=== PATIENT | male | born 1975 | race Hispanic/Latino ===

== ENCOUNTER 2016-03-31 09:11 | Outpatient (CLI) | payer MEDICARE, OTHER ==
[2016-03-31 09:31] LABS: #Basophils 0.1 thou/uL (0.0-0.2); #Eosinphils 0.1 thou/uL (0.0-0.7); #Lymphocytes 1.3 thou/uL (1.20-3.40); #Monocytes 0.5 thou/uL (0.11-0.59); #Neutrophils 2.6 thou/uL (1.40-6.50); %Basophils 1.7 % (0.0-1.0); %Eosinophils 2.4 % (0.0-10.0); %Lymphocytes 29.4 % (21.0-51.0); %Monocytes 10.1 % (0.0-10.0); %Neutrophils 56.4 % (42.0-75.0); Hemoglobin 15.4 g/dL (14.0-18.0); Mean Corpuscular HGB CONC 34.3 g/dL (32.0-36.0); Mean Corpuscular Hemoglobin 32.3 pg (27.0-31.0); Mean Corpuscular Volume 94.2 fl (80.0-94.0); Mean Platelet Volume 11.7 fL (7.4-10.4); Platelet Count 154 thou/uL (130-400); Red Blood Cell (RBC) Count 4.76 mill/uL (4.70-6.10); White Blood Cell (WBC) Count 4.5 thou/uL (4.8-10.8)
[2016-03-31 09:41] LABS: Hemoglobin A1c 5.6 % (4.0-6.0)
[2016-03-31 09:45] LABS: Anion Gap 12 mmol/L (10-20); BUN (Urea Nitrogen) 16 mg/dL (8.9-20.6); Calc. Creatinine Clearance 0 mL/min (70-130); Calcium 9.3 mg/dL (7.8-10.44); Carbon Dioxide 29 mmol/L (22-29); Chloride 102 mmol/L (98-107); Cholesterol 235 mg/dL (< 200 Desired); Estimated GFR-MDRD 87; Glucose 117 mg/dL (70-105); HDL Cholesterol 47 mg/dL (>60 Neg Risk); LDL Cholesterol, Calculated 176 mg/dL; Potassium 4.1 mmol/L (3.5-5.1); Sodium 139 mmol/L (136-145); Triglycerides 59 mg/dL (Less than 150)
== END 2016-03-31 09:12 | disposition home or self-care (01) ==
LOC: MADLABBHPM 09:11
PROVIDERS: ATTEND Family Medicine
DX: R73.09 Other abnormal glucose (principal); E78.5 Hyperlipidemia, unspecified
CPT/HCPCS: 36415; 80048; 80061; 83036; 85025

== ENCOUNTER 2016-05-20 11:17 | Emergency (ER) | payer OTHER, MEDICARE ==
[~2016-05-20 11:17] MED LIST: Sterile Water Irrigation 250 ML BOT ONE
[2016-05-20] MEDS ORDERED: Lidocaine 1% 20 ML MDV ONE (11:23)
[2016-05-20] MEDS ORDERED: HYDROcodone/Acetaminophen 10/325 mg Tablet ONE ×2 (11:47→11:49)
[2016-05-20] MEDS ORDERED: Triple Antibiotic Oint 1 GM Packet ONE (12:01)
== END 2016-05-20 12:05 | disposition home or self-care (01) ==
LOC: MADERS 11:17
DX: S81.812A Laceration without foreign body, left lower leg, initial encounter (principal); W45.8XXA Other foreign body or object entering through skin, initial encounter
CPT/HCPCS: 99283; J2001

== ENCOUNTER 2016-05-21 13:43 | Emergency (ER) | payer OTHER, MEDICARE ==
--- NOTE | 2016-05-21 14:36 | RAD ---
LEFT ANKLE 3 VIEWS: Date: 05/21/16 HISTORY: Trauma. FINDINGS: No significant soft tissue swelling noted. No evidence of fracture. No osseous abnormality. IMPRESSION: No acute findings. POS: [facility]
== END 2016-05-21 14:22 | disposition home or self-care (01) ==
LOC: MADERS 13:43
DX: S90.02XA Contusion of left ankle, initial encounter (principal); S91.012D Laceration without foreign body, left ankle, subsequent encounter; W22.8XXA Striking against or struck by other objects, initial encounter

== ENCOUNTER 2016-09-14 15:30 | Emergency (ER) | payer OTHER, MEDICARE ==
--- NOTE | 2016-09-14 17:26 | CT ---
NONCONTRAST HEAD CT: Date: 09/14/16 HISTORY: Patient hit head while working on chicken [place] yesterday. Small cut to right forehead. Patient is no w having dizziness and nausea. COMPARISON: None. TECHNIQUE: Noncontrast head CT is performed from skull base to skull vertex. FINDINGS: No parenchymal hemorrhage. No extra-axial hematoma. No midline shift. Basilar cisterns are patent. B rain volume is age-appropriate. Cortical turner-white matter differentiation is preserved. Ventricles and sulci are patent and symmetric. Calvarium is intact. Adequate aeration of the sinuses and mastoi d air cells. IMPRESSION: No intracranial post-traumatic sequelae. POS: [facility]
== END 2016-09-14 16:55 | disposition home or self-care (01) ==
LOC: MADERS 15:30
DX: S01.81XA Laceration without foreign body of other part of head, initial encounter (principal); W22.8XXA Striking against or struck by other objects, initial encounter
CPT/HCPCS: 70450

== ENCOUNTER 2017-02-13 09:28 | Emergency (ER) | payer OTHER, MEDICARE | END 2017-02-13 10:00 | disposition home or self-care (01) | LOC: MADERS 09:28 | DX: J20.9 Acute bronchitis, unspecified (principal); J01.90 Acute sinusitis, unspecified; H65.92 Unspecified nonsuppurative otitis media, left ear | CPT/HCPCS: 99283 ==

== ENCOUNTER 2017-02-18 13:54 | Emergency (ER) | payer MEDICARE, OTHER ==
[2017-02-18 14:41] LABS: Bilirubin Negative (Negative); Blood, Urine Negative (Negative); Clarity Clear (Clear); Glucose, Urine (Dipstick) Negative (Negative); Leukocyte Negative (Negative); Nitrite Negative (Negative); Protein, Urine (Dipstick) 30 mg/dL (Neg-Trace)
[2017-02-18 14:42] LABS: Specific Gravity, Urine 1.034 (1.002-1.036)
[2017-02-18 14:44] LABS: Bacteria/HPF Rare-Few HPF (None Seen); RBC/HPF 0-3 HPF (0-3); Sperm/HPF Rare HPF (None Seen); Squamous Epithelial 0-3 HPF (0-3); WBC/HPF 0-3 HPF (0-3)
[2017-02-18 15:01] LABS: #Basophils 0.1 thou/uL (0.0-0.2); #Eosinphils 0.1 thou/uL (0.0-0.7); #Lymphocytes 1.5 thou/uL (1.20-3.40); #Monocytes 0.4 thou/uL (0.11-0.59); #Neutrophils 2.4 thou/uL (1.40-6.50); %Eosinophils 3.1 % (0.0-10.0); %Lymphocytes 32.7 % (21.0-51.0); %Monocytes 9.2 % (0.0-10.0); Mean Corpuscular HGB CONC 33.6 g/dL (32.0-36.0); Mean Corpuscular Hemoglobin 32.5 pg (27.0-31.0); Mean Corpuscular Volume 96.7 fl (80.0-94.0); Mean Platelet Volume 10.2 fL (7.4-10.4); Platelet Count 155 thou/uL (130-400); RBC Distribution Width 12.4 % (11.5-14.5); Red Blood Cell (RBC) Count 4.32 mill/uL (4.70-6.10); White Blood Cell (WBC) Count 4.5 thou/uL (4.8-10.8)
[2017-02-18 15:13] LABS: Anion Gap 12 mmol/L (10-20); BUN (Urea Nitrogen) 19 mg/dL (8.9-20.6); Calc. Creatinine Clearance 0 mL/min (70-130); Calcium 9.1 mg/dL (7.8-10.44); Carbon Dioxide 28 mmol/L (22-29); Chloride 105 mmol/L (98-107); Estimated GFR-MDRD Greater than 90; Glucose 97 mg/dL (70-105); Potassium 4.8 mmol/L (3.5-5.1); Sodium 140 mmol/L (136-145)
--- NOTE | 2017-02-18 15:37 | RAD ---
TWO VIEW CHEST 02/18/17 COMPARISON: 08/18/12. INDICATION: Cough. FINDINGS: There is prominence of each hilar region, more pronounced on the left. No effusion or pneumothorax. T he cardiac silhouette is within normal limits of size. IMPRESSION: Bilateral perihilar prominence, more notable on the left. This could be on the basis of perihilar pne umonia. Additional underlying pathology such as adenopathy or underlying nodularity/mass cannot be ex cluded. Therefore, a followup short term two view chest series is recommended to confirm resolution. Code T POS: [facility]
== END 2017-02-18 15:04 | disposition home or self-care (01) ==
LOC: MADERS 13:54
DX: J18.9 Pneumonia, unspecified organism (principal); J30.9 Allergic rhinitis, unspecified; Z79.899 Other long term (current) drug therapy
CPT/HCPCS: 36415; 71020; 80048; 81003; 81015; 85025

== ENCOUNTER 2017-02-23 16:55 | Emergency (ER) | payer MEDICARE, OTHER ==
[2017-02-23] MEDS ORDERED: Aspirin 325 MG TAB ONE (17:16)
[2017-02-23 17:49] LABS: #Basophils 0.1 thou/uL (0.0-0.2); #Eosinphils 0.1 thou/uL (0.0-0.7); #Lymphocytes 1.5 thou/uL (1.20-3.40); #Monocytes 0.5 thou/uL (0.11-0.59); #Neutrophils 2.9 thou/uL (1.40-6.50); %Basophils 1.9 % (0.0-1.0); %Eosinophils 1.4 % (0.0-10.0); %Monocytes 10.3 % (0.0-10.0); %Neutrophils 56.4 % (42.0-75.0); Hemoglobin 13.9 g/dL (14.0-18.0); Mean Corpuscular HGB CONC 32.6 g/dL (32.0-36.0); Mean Corpuscular Hemoglobin 31.5 pg (27.0-31.0); Mean Corpuscular Volume 96.9 fl (80.0-94.0); Mean Platelet Volume 11.9 fL (7.4-10.4); Platelet Count 153 thou/uL (130-400); RBC Distribution Width 12.5 % (11.5-14.5); White Blood Cell (WBC) Count 5.1 thou/uL (4.8-10.8)
[2017-02-23 18:03] LABS: ALT (SGPT) 32 U/L (8-55); AST (SGOT) 23 U/L (5-34); Alkaline Phosphatase 46 U/L (40-150); Anion Gap 14 mmol/L (10-20); BUN (Urea Nitrogen) 13 mg/dL (8.9-20.6); Bilirubin, Total 0.5 mg/dL (0.2-1.2); CK (CPK) 103 U/L (30-200); Calc. Creatinine Clearance 0 mL/min (70-130); Calcium 8.8 mg/dL (7.8-10.44); Carbon Dioxide 26 mmol/L (22-29); Chloride 102 mmol/L (98-107); Estimated GFR-MDRD Greater than 90; Globulin 2.9 g/dL (2.4-3.5); Glucose 145 mg/dL (70-105); Potassium 4.1 mmol/L (3.5-5.1); Protein, Total 6.9 g/dL (6.0-8.3); Sodium 138 mmol/L (136-145)
[2017-02-23 18:20] LABS: CKMB 2.7 ng/mL (0-6.6); Troponin I Less than 0.010 ng/mL (< 0.028)
[2017-02-23] MEDS ORDERED: Ketorolac Tromethamine 30 MG/ML VIAL ONE (18:41)
== END 2017-02-23 19:10 | disposition home or self-care (01) ==
LOC: MADERS 16:55
DX: M94.0 Chondrocostal junction syndrome [Tietze] (principal)
CPT/HCPCS: 80053; 82550; 82553; 84484; 85025; 85379; 93005; 96374; J1885

== ENCOUNTER 2017-03-30 10:09 | Outpatient (CLI) | payer MEDICARE ==
--- NOTE | 2017-03-30 11:15 | RAD ---
CHEST 2 VIEWS: HISTORY: Cough. COMPARISON: 02/18/17. FINDINGS: Cardiac silhouette is unremarkable. Pulmonary vasculature is upper limits of normal. Mediastinum is midline. There is no confluent airspace consolidation, pneumothorax, or pleural fluid evident. IMPRESSION: Borderline pulmonary vascular congestion. No florid edema or lobar consolidation are apparent. POS: [facility]
== END 2017-03-30 10:10 | disposition home or self-care (01) ==
LOC: MADRAD 10:09
PROVIDERS: ATTEND Family Medicine
DX: R05 Cough (principal)
CPT/HCPCS: 71046

== ENCOUNTER 2017-05-02 09:50 | Emergency (ER) | payer MEDICARE ==
--- NOTE | 2017-05-02 10:28 | RAD ---
2 VIEWS CHEST: Date: 05/02/17 COMPARISON: 03/30/17. HISTORY: Cough. FINDINGS: Two views of the chest show normal sized cardiomediastinal silhouette. There is no evidence of consol idation, mass, or pleural effusion. The bones are unremarkable. IMPRESSION: No evidence of acute cardiopulmonary disease. POS: [facility]
[2017-05-02] MEDS ORDERED: Dexamethasone 4 MG TAB ONE (11:02)
[2017-05-02] MEDS ORDERED: Benzonatate 100 MG CAP ONE (11:02)
[2017-05-02] MEDS ORDERED: HYDROcodone/Acetaminophen 5/325 mg Tablet ONE (11:02)
== END 2017-05-02 11:45 | disposition home or self-care (01) ==
LOC: MADERS 09:50
DX: J11.1 Influenza due to unidentified influenza virus with other respiratory manifestations (principal)
CPT/HCPCS: 71046; J8540